=== PATIENT | male | born 1955 | race Caucasian/White ===

== ENCOUNTER → 2016-09-09 | Emergency (ER) | payer BC, OTHER ==
[~2016-09-09] MED LIST: ACETAMINOPHEN 325 MG TABLET (FP) ONE; ACETAMINOPHEN 325 MG TABLET (FP) PO ONE; OSELTAMIVIR PHOSPHATE 75 MG CAPSULE ONE; OSELTAMIVIR PHOSPHATE 75 MG CAPSULE PO ONE
[2016-09-09 22:23] VITALS: BP 139/78; PULSE 98; TEMP 98.8; BMI 26.2
--- NOTE | 2016-09-09 23:48 | PDOC ---
History of Present Illness - General Chief Complaint: Cold Symptoms Stated Complaint: COLD SYMPTOMS Time Seen by Provider: 09/09/16 22:47 History Source: Patient Exam Limitations: No Limitations - History of Present Illness Initial Comments: 09/09/16 23:43 61yo Male patient presents to ED c/o fever, chills, congestion, body aches, sneezing, coughing x 2 days. He states his granddaughter and son are sick with similar symptoms and may have gotten illness from them. Patient reports fever 102.0. OTC Motrin use with last dose at 6pm today. Patient denies any other complaints at this time. Past History - Travel Traveled outside of the country in the last 30 days: No Close contact w/someone who was outside of country & ill: No - Past Medical History Allergies/Adverse Reactions: Allergies Allergy/AdvReac Type Severity Reaction Status Date / Time No Known Allergies Allergy Verified 09/09/16 22:21 Home Medications: Ambulatory Orders Cyclobenzaprine HCl [Flexeril -] 10 mg PO TID PRN #21 tablet 09/10/16 Ibuprofen [Motrin -] 600 mg PO Q6H PRN #30 tablet 09/10/16 Oseltamivir Phosphate [Tamiflu -] 75 mg PO BID #10 capsule 09/10/16 Other medical history: denies - Psycho/Social/Smoking Cessation Hx Suicidal Ideation: No Smoking History: Never smoked Have you smoked in the past 12 months: No If you are a former smoker, when did you quit?: 20 YRS Hx Alcohol Use: No Drug/Substance Use Hx: No Substance Use Type: None Respiratory Specific PMHX - Complaint Specific PMHX Angina: No Bronchitis: No Pneumonia: No Pulmonary Embolus: No TB (Tuberculosis): No Review of Systems - Review of Systems Constitutional: Yes: Chills, Fever, Weakness. No: Night Sweats HEENTM: Yes: Nose Congestion. No: Blurred Vision, Double Vision, Ear Pain, Ear Discharge, Throat Pain, Difficulty Swallowing, Mouth Swelling Respiratory: Yes: Cough. No: Orthopnea, Shortness of Breath, SOB at Rest, Stridor, Wheezing, Hemoptysis Cardiac (ROS): No: Chest Pain, Edema, Lightheadedness, Palpitations, Syncope, Chest Tightness ABD/GI: No: Constipated, Diarrhea, Nausea, Poor Appetite, Poor Fluid Intake, Vomiting Musculoskeletal: Yes: Muscle Weakness. No: Back Pain Integumentary: No: Rash Neurological: No: Headache, Numbness, Paresthesia, Seizure, Tremors, Weakness, Unsteady Gait, Ataxia All Other Systems: Reviewed and Negative *Physical Exam - Vital Signs Last Vital Signs Temp Pulse Resp BP Pulse Ox 98.8 F 98 H 18 139/78 96 09/09/16 22:21 09/09/16 22:21 09/09/16 22:21 09/09/16 22:21 09/09/16 22:21 - Physical Exam General Appearance: Yes: Nourished, Appropriately Dressed. No: Apparent Distress, Mild Distress, Moderate Distress, Severe Distress HEENT: positive: EOMI, JET, Normal ENT Inspection, Normal Voice, Symmetrical, TMs Normal, Pharynx Normal. negative: Tonsillar Exudate, Tonsillar Erythema, Nasal Congestion, Rhinorrhea, TM Bulging, TM Dull, TM Erythema Neck: positive: Trachea midline, Supple. negative: Stridor, Lymphadenopathy (R) , Lymphadenopathy (L) Respiratory/Chest: positive: Lungs Clear, Normal Breath Sounds. negative: Respiratory Distress, Accessory Muscle Use, Labored Respiration, Rapid RR, Crackles, Rales, Rhonchi, Stridor, Wheezing Cardiovascular: positive: Regular Rhythm, Regular Rate. negative: Edema, JVD, Murmur Gastrointestinal/Abdominal: positive: Normal Bowel Sounds, Soft. negative: Distended, Guarding, Rebound, Tenderness Lymphatic: negative: Adenopathy Musculoskeletal: positive: Normal Inspection. negative: CVA Tenderness Extremity: positive: Normal Capillary Refill, Normal Inspection, Normal Range of Motion. negative: Pedal Edema, Swelling Integumentary: positive: Normal Color, Dry, Warm. 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, Fully Oriented, Alert, Normal Mood/ Affect, Normal Response, Motor Strength 5/5 ED Treatment Course - RADIOLOGY Radiology Studies Ordered: Category Date Time Status CHEST PA & LAT [RAD] Stat Radiology 09/09/16 23:23 Ordered - Medications Given in the ED: ED Medications Discontinued Medications Generic Name Dose Route Start Last Admin Trade Name Freq PRN Reason Stop Dose Admin Acetaminophen 650 mg 09/09/16 23:23 09/09/16 23:32 Tylenol - PO 09/09/16 23:24 650 mg ONCE ONE Administration *DC/Admit/Observation/Transfer Diagnosis at time of Disposition: Influenza A - Discharge Dispostion Disposition: HOME Condition at time of disposition: Improved Admit: No - Prescriptions Prescriptions: Cyclobenzaprine HCl [Flexeril -] 10 mg PO TID PRN #21 tablet PRN Reason: Muscle pain Ibuprofen [Motrin -] 600 mg PO Q6H PRN #30 tablet PRN Reason: Mild Pain Oseltamivir Phosphate [Tamiflu -] 75 mg PO BID #10 capsule - Patient Instructions Printed Discharge Instructions: Influenza, DI for Muscle Weakness Additional Instructions: FOLLOW UP WITH YOUR PRIMARY CARE PROVIDER. CALL TO SCHEDULE APPOINTMENT. TAKE MEDICATIONS PRESCRIBED. MOTRIN OR TYLENOL FOR FEVER, PAIN. GET LOTS OF REST AND DRINK PLENTY FLUIDS. RETURN IF SYMPTOMS WORSEN. NO WORK X 2 DAY AND MUST BE WITHOUT FEVER TO RETURN TO WORK. IF FEVER PERSIST, AGAIN, MAKE AN APPOINTMENT TO SEE YOU DOCTOR. Print Language: MARTINIQUAIS - Post Discharge Activity Work/School Note: Back to Work
== END | disposition home or self-care (01) ==
LOC: JER 22:09
DX: J09.X2 Influenza due to identified novel influenza A virus with other respiratory manifestations (principal)
CPT/HCPCS: 71020-TC; 87804; 99281-25

== ENCOUNTER 2019-03-09 08:54 | Emergency (ER) | payer BC, OTHER ==
[2019-03-09 08:59] VITALS: TEMP 97.7; BMI 25.0
[2019-03-09] MEDS ORDERED: SODIUM CHLORIDE 1,000 ML IV STA (09:25)
[2019-03-09] MEDS ORDERED: ONDANSETRON 4 MG/2 ML VIAL IVPUSH ONE (09:25)
[2019-03-09] MEDS ORDERED: ONDANSETRON 4 MG/2 ML VIAL ONE (09:27)
--- NOTE | 2019-03-09 09:39 | PDOC ---
History of Present Illness - General Chief Complaint: Pain Stated Complaint: NAUSEA/DIARRHEA Time Seen by Provider: 03/09/19 09:13 History Source: Patient Exam Limitations: No Limitations Past History - Past Medical History Allergies/Adverse Reactions: Allergies Allergy/AdvReac Type Severity Reaction Status Date / Time No Known Allergies Allergy Verified 03/09/19 08:58 Home Medications: Ambulatory Orders NK [No Known Home Medication] 03/09/19 COPD: No Other medical history: pancreatitis - Suicide/Smoking/Psychosocial Hx Smoking History: Never smoked Have you smoked in the past 12 months: No If you are a former smoker, when did you quit?: 20 YRS Information on smoking cessation initiated: No Hx Alcohol Use: No Drug/Substance Use Hx: No Substance Use Type: None *Physical Exam - Vital Signs Last Vital Signs Temp Pulse Resp BP Pulse Ox 97.7 F 65 18 150/75 98 03/09/19 08:56 03/09/19 08:56 03/09/19 08:56 03/09/19 08:56 03/09/19 08:56 - Physical Exam General Appearance: No: Apparent Distress Respiratory/Chest: positive: Lungs Clear, Normal Breath Sounds. negative: Respiratory Distress Cardiovascular: positive: Regular Rhythm, Regular Rate, S1, S2. negative: Murmur Gastrointestinal/Abdominal: positive: Normal Bowel Sounds, Soft. negative: Tender, Distended, Guarding, Rebound Musculoskeletal: negative: CVA Tenderness Integumentary: positive: Normal Color Neurologic: positive: Alert, Normal Mood/Affect ED Treatment Course - LABORATORY CBC & Chemistry Diagram: 03/09/19 09:40 03/09/19 09:40 Medical Decision Making - Medical Decision Making 64 y/o M hx of pancreatitis (unclear cause), kidney stones, no prior abd surgeries, presents with R flank pain radiating to lower abdomen, which started today around 6 AM along with NBNB emesis and watery diarrhea. Denies fever, sob , cp, dysuria, hematuria, testicular pain, recent travel, sick contacts, possible bad food exposure, use of antibiotics. Drinks alcohol socially. Was former smoker (quit 21 years ago; does not recall how much he smoked). Denies drug use. Probable gastroenteritis, kidney stones Plan: Labs, IVF, Zofran, reassess 03/09/19 09:37 Urine with 3+ blood CT A/P showed passed kidney stone Patient had told me he caught the kidney stone (showed it to me) Currently feeling no pain stable for dc 03/09/19 13:37 *DC/Admit/Observation/Transfer Diagnosis at time of Disposition: Kidney stone - Discharge Dispostion Disposition: HOME Condition at time of disposition: Stable Decision to Admit order: No - Referrals Referrals: Patricio Smith MD [Primary Care Provider] - - Patient Instructions Printed Discharge Instructions: DI for Kidney Stones Additional Instructions: Thank you for choosing [facility]. It was a pleasure taking care of you. Your CT scan showed you had likely passed your kidney stone Please follow-up with your doctor in 2 days Drink at least 2L of water daily Return to the Emergency Department if your symptoms worsen or persist or have other concerning symptoms. - Post Discharge Activity
[2019-03-09 09:54] LABS: BASO % 0.4 % (0-2.0); EOS % 0.4 % (0-4.5); HEMATOCRIT 43.2 % (35.4-49); HEMOGLOBIN 14.7 GM/dL (11.7-16.9); LYMPH % 10.5 % (8-40); MCH 30.9 pg (25.7-33.7); MCHC 34.1 g/dl (32.0-35.9); MEAN CELL VOLUME 90.5 fl (80-96); MEAN PLT VOLUME 9.3 fl (7.5-11.1); MONO % 5.2 % (3.8-10.2); NEUT % 83.5 % (42.8-82.8); PLATELET COUNT 152 K/MM3 (134-434); RBC 4.77 M/mm3 (4.00-5.60); WHITE BLOOD COUNT 9.5 K/mm3 (4.0-10.0)
[2019-03-09 09:55] LABS: EPI CELLS 0.7 /HPF (0-5/HPF); HYALINE CASTS 6 /lpf (0-8); URINE APPEARANCE CLEAR; URINE BACTERIA 0.5 /hpf (NEGATIVE); URINE BILIRUBIN NEGATIVE (NEGATIVE); URINE COLOR YELLOW; URINE GLUCOSE (UA) NEGATIVE (NEGATIVE); URINE KETONE NEGATIVE (NEGATIVE); URINE LEUK ESTERASE NEGATIVE (NEGATIVE); URINE NITRITE NEGATIVE (NEGATIVE); URINE PROTEIN NEGATIVE (NEGATIVE); URINE RBC 40 /hpf (0-4); URINE WBC 2 /hpf (0-5)
[2019-03-09 10:23] LABS: ALBUMIN 4.3 g/dl (3.4-5.0); BILIRUBIN,TOTAL 0.4 mg/dL (0.2-1); BLOOD UREA NITROGEN 20.6 mg/dL (7-18); CALCIUM 9.4 mg/dL (8.5-10.1); CREATININE 1.2 mg/dL (0.55-1.3); MAGNESIUM 2.2 mg/dL (1.8-2.4); POTASSIUM 4.1 mmol/L (3.5-5.1); TOT PROT 7.4 g/dl (6.4-8.2)
[2019-03-09 14:17] VITALS: BP 124/79; PULSE 70
== END 2019-03-09 14:00 | disposition home or self-care (01) ==
LOC: JER 08:54
PROC: 3E033GC Introduction of Other Therapeutic Substance into Peripheral Vein, Percutaneous Approach (ICD-10-PCS; principal; 2019-03-09)
PROC: 3E0337Z Introduction of Electrolytic and Water Balance Substance into Peripheral Vein, Percutaneous Approach (ICD-10-PCS; 2019-03-09)
DX: N20.0 Calculus of kidney (principal); Z87.891 Personal history of nicotine dependence
CPT/HCPCS: 36415; 74176-TC; 80053; 81003; 83690; 83735; 85025; 87086; 99283-25; J7030

== ENCOUNTER 2020-05-02 07:56 | Emergency (ER) | payer BC ==
[2020-05-02 08:08] VITALS: TEMP 98.5; BMI 25.4
--- NOTE | 2020-05-02 08:19 | PDOC ---
History of Present Illness - General Chief Complaint: Hematuria Stated Complaint: BLOOD IN URINE Time Seen by Provider: 05/02/20 08:19 - History of Present Illness Initial Comments: 65 YOM h/o kidney stones presents after bout of hematuria. Patient reports woke up this morning, urinated, it was pinkish in color, presented to ED 2/2 concern. Denies pain or burning with urination. Denies pain or drainage/ discharge from penis. 20y h/o smoking quit 20 years ago. Sexually active, one partner, . No h/o std. Denies CP, SOB, N/V/D, fever or chills. Constitutional: No Weight Change, No Fever, No Chills, No Night Sweats, No F atigue, No Malaise ENT/Mouth: No Hearing Changes, No Ear Pain, No Nasal Congestion, No Sinus Pain, No Hoarseness, No sore throat, No Rhinorrhea, No Swallowing Difficulty Eyes: No Eye Pain, No Swelling, No Redness, No Foreign Body, No Discharge, No Vision Changes Cardiovascular: No Chest Pain, No SOB, No PND, No Dyspnea on Exertion, No Orthopnea, No Claudication, No Edema, No Palpitations Respiratory: No Cough, No Sputum, No Wheezing, No Smoke Exposure, No Dyspnea Gastrointestinal: No Nausea, No Vomiting, No Diarrhea, No Constipation, No Pain, No Heartburn, No Anorexia, No Dysphagia, No Hematochezia, No Melena, No Flatulence, No Jaundice Genitourinary: No Dysmenorrhea, No DUB, No Dyspareunia, No Dysuria, No Urinary Frequency, + Hematuria, No Urinary Incontinence, No Urgency, No Flank Pain, No Urinary Flow Changes, No Hesitancy Musculoskeletal: No Arthralgias, No Myalgias, No Joint Swelling, No Joint Stiffness, No Back Pain, No Neck Pain, No Injury History Skin: No Skin Lesions, No Pruritis, No Hair Changes, No Breast/Skin Changes, No Nipple Discharge Neuro: No Weakness, No Numbness, No Paresthesias, No Loss of Consciousness, No Syncope, No Dizziness, No Headache, No Coordination Changes, No Recent Falls Psych: No Anxiety/Panic, No Depression, No Insomnia, No Personality Changes, No Delusions, No Rumination, No SI/HI/AH/VH, No Social Issues, No Memory Changes, No Violence/Abuse Hx., No Eating Concerns Heme/Lymph: No Bruising, No Bleeding, No Transfusions History, No Lymphadenopathy Past History - Medical History Allergies/Adverse Reactions: Allergies Allergy/AdvReac Type Severity Reaction Status Date / Time No Known Allergies Allergy Verified 05/02/20 08:02 Home Medications: Ambulatory Orders NK [No Known Home Medication] 03/09/19 COPD: No Kidney Stones: Yes - Psycho-Social/Smoking History Smoking History: Former smoker Have you smoked in the past 12 months: No If you are a former smoker, when did you quit?: 22 yrs Information on smoking cessation initiated: No - Substance Abuse Hx (Audit-C & DAST Scrn) How often the patient has a drink containing alcohol: Never Score: In Men: 4 or > Positive; In Women: 3 or > Positive: 0 Screen Result (Pos requires Nsg. Audit-10AR): Negative In the last yr the pt used illegal drug/Rx for NonMed reason: No Score: Yes response is considered Positive: 0 Screen Result (Positive result requires Nsg. DAST-10): Negative *Physical Exam - Vital Signs Last Vital Signs Temp Pulse Resp BP Pulse Ox 98.5 F 82 18 173/90 H 100 05/02/20 08:02 05/02/20 08:02 05/02/20 08:02 05/02/20 08:02 05/02/20 08:02 - Physical Exam General Appearance: Yes: Nourished, Appropriately Dressed HEENT: positive: JET, Normal ENT Inspection, Normal Voice, Symmetrical Neck: positive: Trachea midline, Normal Thyroid Respiratory/Chest: positive: Lungs Clear, Normal Breath Sounds Cardiovascular: positive: Regular Rhythm, Regular Rate, S1, S2 Gastrointestinal/Abdominal: positive: Flat, Soft Musculoskeletal: positive: Normal Inspection Extremity: positive: Normal Capillary Refill, Normal Inspection Integumentary: positive: Normal Color, Dry, Warm Neurologic: positive: phone triage specialist II-XII NML intact, Fully Oriented, Alert, Normal Mood/Affect, Normal Response, Motor Strength 5/5 ED Treatment Course - LABORATORY CBC & Chemistry Diagram: 05/02/20 09:00 05/02/20 09:00 Medical Decision Making - Medical Decision Making 65 yom no history presents from home for pink urine - patients bp is 170s/100s, vitals otherwise wnl - exam unremarkable - yves do UA, CBC, CMP and reassess reassess - patients urine is yellow, 3+ blood and 1+ protein on UA - labs wnl - spoke with patients primary who will fu - gave referral for nephrology and urology - will dc to home Discharge - Discharge Information Problems reviewed: Yes Clinical Impression/Diagnosis: Hematuria Condition: Good - Admission No - Follow up/Referral Referrals: Fermin Hannah S.A. [Other Staff,non-medical] - Brenda Covarrubias MD [Non Staff, Medical] - - Patient Discharge Instructions Patient Printed Discharge Instructions: DI for Hematuria Additional Instructions: You were seen in the hospital for blood in your urine, you received labs and urinanalysis. Your labs were normal however your urine contained blood and protein. You were considered medically stable and safe to return home, however you should follow up with your primary care doctor, a urologist and account service representative regarding your visit to the emergency department. WHAT YOU NEED TO KNOW: Hematuria is blood in your urine. Your urine may be bright red to dark brown. DISCHARGE INSTRUCTIONS: Return to the emergency department if: You have blood in your urine after a new injury, such as a fall. You are urinating very small amounts or not at all. You feel like you cannot empty your bladder. You have severe back or side pain that does not go away with treatment. Contact your healthcare provider if: You have a fever that gets worse or does not go away with treatment. You cannot keep liquids or medicines down. Your urine gets darker, even after you drink extra liquids. You have questions or concerns about your condition, treatment, or care. Drink liquids as directed: You may need to drink extra liquids to help flush the blood from your body through your urine. Water is the best liquid to drink. Ask how much liquid to drink each day and which liquids are best for you. Follow up with your healthcare provider as directed: Write down your questions so you remember to ask them during your visits. - Post Discharge Activity
--- OUTSIDE RECORDS SUMMARY | 2020-05-02 08:22 | XMS ---
:1955 Author Organization [facility] Care Team Providers Name Role Phone Luis Patricio Grajeda Unavailable Apuzzo, Taras Unavailable Apuzzbrody, Taras Unavailable Apuzzo, Taras Unavailable Apuzzo, Taras Unavailable Apuzzo, Taras Unavailable Apuzzo, Taras Unavailable Apuzzo, Taras Unavailable Apuzzo, Taras Unavailable Apuzzo, Taras Unavailable Re-disclosure Warning The records that you are about to access may contain information from federally- assisted alcohol or drug abuse programs. If such information is present, then the following federally mandated warning applies: This information has been disclosed to you from records protected by federal confidentiality rules (42 CFR part 2). The federal rules prohibit you from making any further disclosure of this information unless further disclosure is expressly permitted by the written consent of the person to whom it pertains or as otherwise permitted by 42 CFR part 2. A general authorization for the release of medical or other information is NOT sufficient for this purpose. The Federal rules restrict any use of the information to criminally investigate or prosecute any alcohol or drug abuse patient.The records that you are about to access may contain highly sensitive health information, the redisclosure of which is protected by Article 27-F of the [facility] Public Health law. If you continue you may haveaccess to information: Regarding HIV / AIDS; Provided by facilities licensed or operated by the [facility] Office of Mental Health; or Provided by the [facility] Office for People With Developmental Disabilities. If such information is present, then the following [facility] mandated warning applies: This information has been disclosed to you from confidential records which are protected by state law. State law prohibits you from making any further disclosure of this information without the specific written consent of the person to whom it pertains, or as otherwise permitted by law. Any unauthorized further disclosure in violation of state law may result in a fine or group home sentence or both. A general authorization for the release of medical or other information is NOT sufficient authorization for further disclosure. Encounters Encounter Providers Location Date Indications Data Source(s ) Attender: Patricio 02/08/2020 [facility] ( [facility] 12:00:00 AM [facility] Office Attender: Patricio Smith 02/08/2020 12:00:00 AM EDT [facility] ([facility] Office Insurance Providers Payer name Policy type Policy ID Covered Covered libertarian's Policy P ramon / Coverage libertarian ID relationship to Green Inf ormation type green BC P[place] [id number] [place] [id number] THE EMPIR [id number] 1 [id number] PLAN EMPIRE BLUE [id number] [facility] [id number] SP [id number] MANAGEMENT Problems, Conditions, and Diagnoses Code Display Name Description Problem Type Effective Data Sour ce(s) Dates R53.83 Other fatigue OTHER FATIGUE Problem 02/08/2020 [facility] ( [facility] 12[facility]) Z20.828 Contact with and CONTACT WITH AND Problem 02/08/2020 [facility] ([facility] (suspected) (SUSPECTED) 12:00:00 AM [facility] exposure to other EXPOSURE TO OTHER [facility]) viral communicable VIRAL COMMUNICABLE diseases DISEASES Surgeries/Procedures Procedure Description Date Indications Data Source(s) Documentation of current 02/08/2020 [facility] ([facility] medications (procedure) 12:00:00 AM EDT [facility], ) OFFICE OUTPATIENT VISIT 02/08/2020 [facility] ([facility] 15 MINUTES 12:00:00 AM [facility], ) COLLECTION VENOUS BLOOD 02/08/2020 [facility] ([facility] VENIPUNCTURE 12:00:00 AM [facility]) Results ID Date Data Source [id number] 01/30/2020 12:00:00 AM EDT [facility] Name Value Range Interpretation Code Description Data Araceli rce(s) Supporting Document(s ) 2019-nCoV [facility] RNA XXX KATELIN+probe- Imp This lab was ordered by [facility]-Nita JARA and reported by [employer]. 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 Smoking 02/08/2020 Unknown if ever completed Unknown if ever [facility] ([facility] 12:00:00 AM EDT smoked smoked [facility], ) Vital Signs ID Date Data Source UNK Name Value Range Interpretation Code Description Data Source(s) Heart rate 74 /min 74 /min [facility] ([facility]) Respiratory rate 14 /min 14 /min [facility] ( [facility]) Inhaled oxygen 99 % 99 % [facility] ([facility], ) Body mass index 26.8 kg/m2 26.8 kg/m2 [facility] (S t (BMI) [Ratio] [facility]) Diastolic blood 86 mm[Hg] 86 mm[Hg] [facility] (S t pressure [facility]) Systolic blood 138 mm[Hg] 138 mm[Hg] [facility] ([facility]) Body weight 156 lb 156 lb [facility] ([facility]) Body height 64 in 64 in [facility] ([facility])
[2020-05-02 09:15] LABS: BASO % 0.5 % (0-2.0); HEMATOCRIT 42.3 % (35.4-49); HEMOGLOBIN 14.6 GM/dL (11.7-16.9); LYMPH % 22.2 % (8-40); MCH 31.3 pg (25.7-33.7); MCHC 34.6 g/dl (32.0-35.9); MEAN CELL VOLUME 90.6 fl (80-96); MEAN PLT VOLUME 9.4 fl (7.5-11.1); MONO % 8.9 % (3.8-10.2); NEUT % 66.4 % (42.8-82.8); PLATELET COUNT 148 K/MM3 (134-434); RBC 4.66 M/mm3 (4.00-5.60); RDW 12.8 % (11.9-15.9); WHITE BLOOD COUNT 5.5 K/mm3 (4.0-10.0)
[2020-05-02 09:16] LABS: EPI CELLS 2 /uL (0-25.1); HYALINE CASTS 1 /uL (0-3.1); URINE APPEARANCE CLEAR; URINE BACTERIA 2 /uL (0-1359); URINE BILIRUBIN NEGATIVE (NEGATIVE); URINE COLOR YELLOW; URINE GLUCOSE (UA) NEGATIVE (NEGATIVE); URINE KETONE NEGATIVE (NEGATIVE); URINE LEUK ESTERASE NEGATIVE (NEGATIVE); URINE NITRITE NEGATIVE (NEGATIVE); URINE PROTEIN 1+ (NEGATIVE); URINE RBC 1845 /uL (0-23.9); URINE UROBILINOGEN 0.2 mg/dL (0.2-1.0); URINE WBC 14 /uL (0-25.8)
[2020-05-02 09:45] LABS: BILIRUBIN,TOTAL 0.3 mg/dL (0.2-1); BLOOD UREA NITROGEN 17.2 mg/dL (7-18); CALCIUM 8.9 mg/dL (8.5-10.1); CREATININE 0.9 mg/dL (0.55-1.3); POTASSIUM 4.1 mmol/L (3.5-5.1); TOT PROT 7.2 g/dl (6.4-8.2)
--- NOTE | 2020-05-02 10:26 | PDOC ---
Documentation entered by Johnson Gaines SCRIBE, acting as scribe for Rogerio Lerner MD. Rogerio Lerner MD: This documentation has been prepared by the Eder simeon Angel, SCRIBE, under my direction and personally reviewed by me in its entirety. I confirm that the documentation accurately reflects all work, treatment, procedures, and medical decision making performed by me. Attending Attestation - Resident Resident Name: Massimo Jackson - ED Attending Attestation I have performed the following: I have examined & evaluated the patient, The case was reviewed & discussed with the resident, I agree w/resident's findings & plan, Exceptions are as noted - HPI HPI: 05/02/20 09:56 The patient is a 65 year old male with a significant past medical history of kidney stones who presents to the ED with hematuria since this morning. The patient states he woke up this morning and after urinating noticed that it was pinkish in color. The patient denies any pain/burning sensation upon urinating. The patient denies cough, SOB, fever/chills or N/V/D. Denies any back pain, flank pain, abdominal pain. 05/02/20 09:58 - Physicial Exam PE: 05/02/20 10:25 Exam: GENERAL: The patient is awake, alert, and fully oriented, Nontoxic - in no acute distress. HEAD: Normocephalic, atraumatic. EYES: extraocular movements intact, sclera anicteric, conjunctiva clear. ENT: Normal voice, Moist mucous membranes. NECK: Normal range of motion, supple LUNGS: Breath sounds equal, clear to auscultation bilaterally. No wheezes, no rhonchi, no rales. HEART: Regular rate and rhythm, normal S1 and S2 without murmur, rub or gallop. ABDOMEN: Soft, nontender, No guarding, no rebound. No CVA tenderness EXTREMITIES: Normal range of motion, no edema. NEUROLOGICAL: No facial assymetry, Normal speech, PSYCH: Normal mood, normal affect. SKIN: Warm, Dry, normal turgor, - Medical Decision Making 05/02/20 10:25 a&Pp isolated hematuria possibly passed kidney stone labs reviewed noted for hematuria No systemic complaints, w no signs of infection Will discharge follow-up with urology and PMD for resolution of hematuria for outpatient work of his hematuria. Return precautions were discussed including other symptoms including fevers, pain. Heart Score/ECG Review - ECG Impressions Comment:: 05/02/20 10:49 Twelve-lead EKG was performed and reviewed by me. There is normal sinus rhythm with a normal rate. Rate of 81 Occasional PVCs noted The axis is normal. The intervals are normal. There is normal R wave progression There are no ST or T wave abnormalities. Discharge - Discharge Information Problems reviewed: Yes Clinical Impression/Diagnosis: Hematuria Qualifiers: Hematuria type: gross Qualified Code(s): R31.0 - Gross hematuria Condition: Good Disposition: HOME - Admission No - Follow up/Referral Referrals: Fermin Hannah S.A. [Other Staff,non-medical] - Brenda Covarrubias MD [Non Staff, Medical] - - Patient Discharge Instructions Patient Printed Discharge Instructions: DI for Hematuria Additional Instructions: You were seen in the hospital for blood in your urine, you received labs and urinanalysis. Your labs were normal however your urine contained blood and protein. You were considered medically stable and safe to return home, however you should follow up with your primary care doctor, a urologist and director sterile processing regarding your visit to the emergency department. WHAT YOU NEED TO KNOW: Hematuria is blood in your urine. Your urine may be bright red to dark brown. DISCHARGE INSTRUCTIONS: Return to the emergency department if: You have blood in your urine after a new injury, such as a fall. You are urinating very small amounts or not at all. You feel like you cannot empty your bladder. You have severe back or side pain that does not go away with treatment. Contact your healthcare provider if: You have a fever that gets worse or does not go away with treatment. You cannot keep liquids or medicines down. Your urine gets darker, even after you drink extra liquids. You have questions or concerns about your condition, treatment, or care. Drink liquids as directed: You may need to drink extra liquids to help flush the blood from your body through your urine. Water is the best liquid to drink. Ask how much liquid to drink each day and which liquids are best for you. Follow up with your healthcare provider as directed: Write down your questions so you remember to ask them during your visits. - Post Discharge Activity
--- NOTE | 2020-05-02 10:29 | EKG ---
Test Reason : Blood Pressure : / mmHG Vent. Rate : 081 BPM Atrial Rate : 069 BPM P-R Int : 136 ms QRS Dur : 082 ms QT Int : 388 ms P-R-T Axes : 042 001 017 degrees QTc Int : 450 ms SINUS RHYTHM WITH PREMATURE SUPRAVENTRICULAR COMPLEXES AND WITH OCCASIONAL PREMATURE VENTRICULAR COMPLEXES WHEN COMPARED WITH ECG OF 11-FEB-2016 19:42, PREMATURE VENTRICULAR COMPLEXES ARE NOW PRESENT PREMATURE SUPRAVENTRICULAR COMPLEXES ARE NOW PRESENT Confirmed by MEERA DIAZ MD ([id number]) on 05/02/2020 10:28:36 AM Referred By: Confirmed By:MEERA DIAZ MD
[2020-05-02 10:40] VITALS: BP 156/98; PULSE 67
== END 2020-05-02 10:52 | disposition home or self-care (01) ==
LOC: JER 07:56
DX: R31.0 Gross hematuria (principal)
CPT/HCPCS: 36415; 80053; 81003; 85025; 87086; 93005; 93010; 99284-25

== ENCOUNTER 2020-05-05 01:18 | Inpatient (IN) | payer BC ==
[2020-05-05] MEDS ORDERED: KETOROLAC TROMETHAMINE 30 MG/1 ML VIAL IVPUSH ONE (02:33)
[2020-05-05] MEDS ORDERED: SODIUM CHLORIDE 0.9% 500 ML INFUS.BAG IV ONE (02:33)
[2020-05-05] MEDS ORDERED: ONDANSETRON 4 MG/2 ML VIAL IVPUSH ONE (02:58)
[2020-05-05 03:16] LABS: BASO % 0.3 % (0-2.0); EOS % 0.1 % (0-4.5); HEMATOCRIT 45.1 % (35.4-49); HEMOGLOBIN 15.3 GM/dL (11.7-16.9); LYMPH % 9.1 % (8-40); MCH 31.4 pg (25.7-33.7); MCHC 33.9 g/dl (32.0-35.9); MEAN CELL VOLUME 92.4 fl (80-96); MEAN PLT VOLUME 9.4 fl (7.5-11.1); MONO % 5.6 % (3.8-10.2); NEUT % 84.9 % (42.8-82.8); PLATELET COUNT 166 K/MM3 (134-434); RBC 4.88 M/mm3 (4.00-5.60); RDW 12.9 % (11.9-15.9); WHITE BLOOD COUNT 11.9 K/mm3 (4.0-10.0)
[2020-05-05] MEDS ORDERED: KETOROLAC TROMETHAMINE 30 MG/1 ML VIAL ONE (03:16)
[2020-05-05 03:20] LABS: EPI CELLS 6 /uL (0-25.1); HYALINE CASTS 3 /uL (0-3.1); URINE APPEARANCE CLEAR; URINE BACTERIA 8 /uL (0-1359); URINE BILIRUBIN NEGATIVE (NEGATIVE); URINE COLOR YELLOW; URINE GLUCOSE (UA) NEGATIVE (NEGATIVE); URINE KETONE NEGATIVE (NEGATIVE); URINE LEUK ESTERASE NEGATIVE (NEGATIVE); URINE NITRITE NEGATIVE (NEGATIVE); URINE PROTEIN TRACE (NEGATIVE); URINE RBC 271 /uL (0-23.9); URINE UROBILINOGEN 0.2 mg/dL (0.2-1.0); URINE WBC 13 /uL (0-25.8)
[2020-05-05 03:38] LABS: ALBUMIN 4.4 g/dl (3.4-5.0); BILIRUBIN,TOTAL 0.5 mg/dL (0.2-1); BLOOD UREA NITROGEN 23.3 mg/dL (7-18); CALCIUM 9.4 mg/dL (8.5-10.1); CREATININE 1.5 mg/dL (0.55-1.3); POTASSIUM 5.5 mmol/L (3.5-5.1); TOT PROT 8.4 g/dl (6.4-8.2)
[2020-05-05] MEDS ORDERED: TAMSULOSIN HCL 0.4 MG CAP PO ONE ×2 (04:29→08:30)
[2020-05-05] MEDS ORDERED: TAMSULOSIN HCL 0.4 MG CAP ONE ×2 (05:00→09:38)
[2020-05-05] MEDS ORDERED: MORPHINE SULFATE 2 MG/ML VIAL IVPUSH PRN ×2 (06:16→16:24)
[2020-05-05] MEDS ORDERED: SODIUM CHLORIDE 1,000 ML IV SCH (06:30)
[2020-05-05] MEDS ORDERED: dilTIAZem HCL 50 MG/10 ML - 10 ML VIAL IVPUSH ONE ×2 (06:58→09:39)
[2020-05-05] MEDS ORDERED: dilTIAZem HCL 125 MG/25 ML - 25 ML VIAL ONE (07:00)
[2020-05-05 08:40] LABS: HEMATOCRIT 45.1 % (35.4-49); HEMOGLOBIN 15.2 GM/dL (11.7-16.9); MCH 31.3 pg (25.7-33.7); MCHC 33.8 g/dl (32.0-35.9); MEAN CELL VOLUME 92.8 fl (80-96); MEAN PLT VOLUME 9.6 fl (7.5-11.1); PLATELET COUNT 154 K/MM3 (134-434); RBC 4.86 M/mm3 (4.00-5.60); WHITE BLOOD COUNT 10.4 K/mm3 (4.0-10.0)
[2020-05-05] MEDS ORDERED: METOPROLOL TARTRATE 5 MG/5 ML VIAL IVPUSH ONE (08:44)
[2020-05-05 08:59] LABS: ALK PHOS 101 U/L (45-117); ANION GAP 5 MMOL/L (8-16); BILIRUBIN,TOTAL 0.5 mg/dL (0.2-1); CALCIUM 9.1 mg/dL (8.5-10.1); CHLORIDE 108 mmol/L (98-107); CO2 28 mmol/L (21-32); CREATININE 1.1 mg/dL (0.55-1.3); GLUCOSE,RANDOM 141 mg/dL (74-106); POTASSIUM 4.8 mmol/L (3.5-5.1); SGOT/AST 23 U/L (15-37); SGPT/ALT 58 U/L (13-61); SODIUM 141 mmol/L (136-145); TOT PROT 7.5 g/dl (6.4-8.2)
[2020-05-05] MEDS ORDERED: METOPROLOL TARTRATE 5 MG/5 ML VIAL ONE (09:37)
[2020-05-05] MEDS ORDERED: HEPARIN NA (PORCINE) 5,000 UNITS/ML 1ML VIAL SQ SCH ×2 (10:00→14:00)
[2020-05-05] MEDS ORDERED: CEFTRIAXONE 1 GM in DEXTROSE 5%-WATER - 50 ML IVPB SCH (13:15)
[2020-05-05] MEDS ORDERED: CEFTRIAXONE 1 GM/50 ML BAG ONE (15:51)
[2020-05-05 18:46] VITALS: BMI 25.9
[2020-05-05] MEDS: SODIUM CHLORIDE 1,000 ML IV SCH (23:56)
[2020-05-06 07:09] LABS: BASO % 0.2 % (0-2.0); EOS % 1.6 % (0-4.5); HEMATOCRIT 39.1 % (35.4-49); HEMOGLOBIN 13.4 GM/dL (11.7-16.9); LYMPH % 27.5 % (8-40); MCH 31.4 pg (25.7-33.7); MCHC 34.3 g/dl (32.0-35.9); MEAN CELL VOLUME 91.6 fl (80-96); MEAN PLT VOLUME 9.3 fl (7.5-11.1); MONO % 7.5 % (3.8-10.2); NEUT % 63.2 % (42.8-82.8); PLATELET COUNT 147 K/MM3 (134-434); RBC 4.27 M/mm3 (4.00-5.60); RDW 13.3 % (11.9-15.9); WHITE BLOOD COUNT 9.4 K/mm3 (4.0-10.0)
[2020-05-06 07:26] LABS: BLOOD UREA NITROGEN 19.7 mg/dL (7-18); CALCIUM 8.1 mg/dL (8.5-10.1); CREATININE 0.9 mg/dL (0.55-1.3); POTASSIUM 4.3 mmol/L (3.5-5.1)
[2020-05-06] MEDS: TAMSULOSIN HCL 0.4 MG CAP PO SCH (07:56)
[2020-05-06] MEDS ORDERED: TAMSULOSIN HCL 0.4 MG CAP PO SCH (08:30)
[2020-05-06] MEDS ORDERED: DEXTROSE 5%-WATER - 50 ML IVPB ONE (09:29)
[2020-05-06] MEDS ORDERED: cefTRIAXone SODIUM 1 GM VIAL ONE (09:29)
[2020-05-06] MEDS: CEFTRIAXONE 1 GM in DEXTROSE 5%-WATER - 50 ML IVPB SCH (09:30)
[2020-05-06] MEDS: SODIUM CHLORIDE 1,000 ML IV SCH ×2 (09:43→22:05)
[2020-05-06] MEDS ORDERED: FLU VACCINE (FLULAVAL) PF 60 MCG/0.5 ML SYRINGE 2020-2021 IM ONE (11:00)
[2020-05-06] MEDS: HEPARIN NA (PORCINE) 5,000 UNITS/ML 1ML VIAL SQ SCH ×2 (14:03→21:59)
[2020-05-07] MEDS: HEPARIN NA (PORCINE) 5,000 UNITS/ML 1ML VIAL SQ SCH ×2 (06:15→14:29)
[2020-05-07 07:40] LABS: BASO % 0.6 % (0-2.0); EOS % 3.2 % (0-4.5); HEMATOCRIT 37.1 % (35.4-49); HEMOGLOBIN 12.5 GM/dL (11.7-16.9); LYMPH % 26.6 % (8-40); MCH 30.9 pg (25.7-33.7); MCHC 33.7 g/dl (32.0-35.9); MEAN CELL VOLUME 91.8 fl (80-96); MEAN PLT VOLUME 9.1 fl (7.5-11.1); MONO % 8.1 % (3.8-10.2); NEUT % 61.5 % (42.8-82.8); PLATELET COUNT 128 K/MM3 (134-434); RBC 4.04 M/mm3 (4.00-5.60); RDW 12.8 % (11.9-15.9); WHITE BLOOD COUNT 6.9 K/mm3 (4.0-10.0)
[2020-05-07 08:02] LABS: BLOOD UREA NITROGEN 15.8 mg/dL (7-18); CALCIUM 8.2 mg/dL (8.5-10.1); CREATININE 0.9 mg/dL (0.55-1.3); MAGNESIUM 2.1 mg/dL (1.8-2.4); PHOSPHOROUS 2.4 mg/dL (2.5-4.9); POTASSIUM 4.2 mmol/L (3.5-5.1)
[2020-05-07] MEDS: TAMSULOSIN HCL 0.4 MG CAP PO SCH (08:22)
[2020-05-07] MEDS: SODIUM CHLORIDE 1,000 ML IV SCH (08:25)
[2020-05-07] MEDS ORDERED: DEXTROSE 5%-WATER - 50 ML IVPB ONE (08:52)
[2020-05-07] MEDS ORDERED: cefTRIAXone SODIUM 1 GM VIAL ONE (08:52)
[2020-05-07] MEDS ORDERED: NAPH,MB-DB/K PH,MBDB POWDER PACKET PO SCH (10:00)
[2020-05-07] MEDS: CEFTRIAXONE 1 GM in DEXTROSE 5%-WATER - 50 ML IVPB SCH (11:28)
[2020-05-07 14:21] VITALS: BP 132/76; PULSE 70; TEMP 98.1
== END 2020-05-07 18:25 | disposition home or self-care (01) | DRG 690 ==
LOC: JER 01:18 → JERBED 05:09 → J4W 18:21
PROVIDERS: ADMIT Hospitalist; ATTEND Internal Medicine
DX: N13.6 Pyonephrosis (principal); N17.9 Acute kidney failure, unspecified; I10 Essential (primary) hypertension; E87.5 Hyperkalemia; I48.0 Paroxysmal atrial fibrillation; R94.5 Abnormal results of liver function studies
CPT/HCPCS: 36415; 71045-TC-FY; 74176-TC; 76775-TC; 80048; 80053; 81003; 83036; 83735; 84100; 84443; 84484; 85025; 85027; 87086; 93005; 93010; 93306-TC; 99285-25; G0008; J1644; Q2036; U0003

== ENCOUNTER 2020-08-28 00:12 | Emergency (ER) | payer BC ==
[2020-08-28 01:09] VITALS: BMI 27.0
[2020-08-28] MEDS ORDERED: METOPROLOL TARTRATE 25 MG TABLET (FP) PO ONE (01:34)
[2020-08-28] MEDS ORDERED: METOPROLOL TARTRATE 25 MG TABLET (FP) ONE (01:37)
[2020-08-28 01:49] LABS: BASO % 0.6 % (0-2.0); EOS % 2.9 % (0-4.5); HEMATOCRIT 43.3 % (35.4-49); HEMOGLOBIN 14.7 GM/dL (11.7-16.9); LYMPH % 25.4 % (8-40); MCH 30.7 pg (25.7-33.7); MEAN CELL VOLUME 90.5 fl (80-96); MEAN PLT VOLUME 9.2 fl (7.5-11.1); MONO % 9.3 % (3.8-10.2); NEUT % 61.8 % (42.8-82.8); PLATELET COUNT 169 K/MM3 (134-434); RBC 4.78 M/mm3 (4.00-5.60); RDW 13.2 % (11.9-15.9); WHITE BLOOD COUNT 6.8 K/mm3 (4.0-10.0)
[2020-08-28 01:57] LABS: INR 1.04 (0.83-1.09); PROTHROMBIN TIME (PATIENT) 12.6 SEC (9.7-13.0)
[2020-08-28 01:59] LABS: ACTIVATED PTT 29.3 SECONDS (25.2-36.5)
[2020-08-28 02:08] LABS: CHLORIDE 107 mmol/L (98-107); SODIUM 136 mmol/L (136-145)
[2020-08-28 02:10] LABS: CALCIUM 8.6 mg/dL (8.5-10.1)
[2020-08-28 02:11] LABS: ALBUMIN 3.8 g/dl (3.4-5.0); BLOOD UREA NITROGEN 16.7 mg/dL (7-18); CO2 30 mmol/L (21-32)
[2020-08-28 02:12] LABS: GLUCOSE,RANDOM 116 mg/dL (74-106)
[2020-08-28 02:14] LABS: CREATININE 1.1 mg/dL (0.55-1.3)
[2020-08-28 02:16] LABS: BILIRUBIN,TOTAL 0.3 mg/dL (0.2-1); TOT PROT 7.8 g/dl (6.4-8.2)
[2020-08-28 02:17] LABS: ALK PHOS 96 U/L (45-117)
[2020-08-28 02:59] LABS: ANION GAP -1 MMOL/L (8-16); SGOT/AST 75 U/L (15-37); SGPT/ALT 43 U/L (13-61)
[2020-08-28 03:06] LABS: POTASSIUM > 10.0 mmol/L (3.5-5.1)
[2020-08-28 03:16] VITALS: BP 145/93; PULSE 70; TEMP 98.3
[2020-08-28 04:24] LABS: CHLORIDE 110 mmol/L (98-107); POTASSIUM 4.5 mmol/L (3.5-5.1); SODIUM 142 mmol/L (136-145)
[2020-08-28 04:26] LABS: ANION GAP 5 MMOL/L (8-16); BLOOD UREA NITROGEN 14.9 mg/dL (7-18); CALCIUM 8.8 mg/dL (8.5-10.1); CO2 27 mmol/L (21-32)
[2020-08-28 04:27] LABS: GLUCOSE,RANDOM 114 mg/dL (74-106)
[2020-08-28 04:30] LABS: CREATININE 0.9 mg/dL (0.55-1.3)
== END 2020-08-28 05:17 ==
LOC: JER 00:12
DX: R00.2 Palpitations (principal)
CPT/HCPCS: 36415; 71046-TC-FY; 80048; 80053; 82550; 82553; 83735; 84484; 85025; 85610; 85730; 93005; 93010; 99285-25

== ENCOUNTER → 2020-09-23 | Emergency (ER) | payer BC ==
[~2020-09-23] MED LIST changes: -ACETAMINOPHEN 325 MG TABLET (FP) ONE; -ACETAMINOPHEN 325 MG TABLET (FP) PO ONE; +LACTATED RINGERS SOLUTION 1000 ML INFUS.BAG IV ONE; -OSELTAMIVIR PHOSPHATE 75 MG CAPSULE ONE; -OSELTAMIVIR PHOSPHATE 75 MG CAPSULE PO ONE
[2020-09-23 18:47] VITALS: BP 124/82; PULSE 88; TEMP 99.5; BMI 25.4
[2020-09-23 20:49] LABS: BASO % 0.4 % (0-2.0); HEMATOCRIT 43.8 % (35.4-49); LYMPH % 14.4 % (8-40); MCH 30.7 pg (25.7-33.7); MCHC 34.2 g/dl (32.0-35.9); MEAN CELL VOLUME 89.8 fl (80-96); MEAN PLT VOLUME 9.2 fl (7.5-11.1); MONO % 13.6 % (3.8-10.2); NEUT % 71.6 % (42.8-82.8); PLATELET COUNT 122 K/MM3 (134-434); RBC 4.88 M/mm3 (4.00-5.60); RDW 13.2 % (11.9-15.9); WHITE BLOOD COUNT 3.8 K/mm3 (4.0-10.0)
[2020-09-23 21:04] LABS: POTASSIUM 4.7 mmol/L (3.5-5.1)
[2020-09-23 21:06] LABS: ALBUMIN 3.9 g/dl (3.4-5.0); CALCIUM 8.7 mg/dL (8.5-10.1)
[2020-09-23 21:11] LABS: BILIRUBIN,TOTAL 0.5 mg/dL (0.2-1); TOT PROT 7.5 g/dl (6.4-8.2)
== END | disposition home or self-care (01) ==
LOC: JER 18:37
DX: B34.9 Viral infection, unspecified (principal)
CPT/HCPCS: 36415; 80053; 83690; 85025; 99284-25

== ENCOUNTER 2024-08-23 07:52 | Emergency (ER) | payer BC ==
[2024-08-23 08:00] VITALS: BP 149/91; PULSE 76; RESP 20; TEMP 99; BMI 25.4
[2024-08-23] MEDS ORDERED: ACETAMINOPHEN 500 MG TABLET (FP) ONE (08:32)
[2024-08-23] MEDS: ACETAMINOPHEN 500 MG TABLET (FP) PO ONE (08:33)
== END 2024-08-23 10:29 | disposition home or self-care (01) ==
LOC: JERFT 07:52
DX: R09.81 Nasal congestion (principal); R05.9 Cough, unspecified; J22 Unspecified acute lower respiratory infection; Z20.822 Contact with and (suspected) exposure to COVID-19
CPT/HCPCS: 0241U-QW; 99283-25